=== PATIENT | female | born 1990 | race Two or more races ===

== ENCOUNTER 2023-06-08 16:00 | Observation (INO) | payer MEDICAID ==
[~2023-06-08] VITALS: Ht 170.2 cm; Wt 60.8 kg
[2023-06-08] MEDS ORDERED: FERR325E14 PO (17:16)
[2023-06-08] MEDS ORDERED: PREN-543 PO (17:16)
[2023-06-08 17:26] VITALS: BP 115/67; PULSE 101; RESP 18; TEMP 98.2
== END 2023-06-08 20:00 | disposition home or self-care (01) ==
LOC: MLD 16:00
PROVIDERS: ADMIT Obstetrics & Gynecology; ATTEND Obstetrics & Gynecology
DX: O46.92 Antepartum hemorrhage, unspecified, second trimester (principal); Z3A.22 22 weeks gestation of pregnancy
CPT/HCPCS: 59025; 81000; G0378